=== PATIENT | female | born 1945 | race American Indian/Alaskan Native ===

== ENCOUNTER 2019-10-08 09:52 | Outpatient (CLI) | payer MEDICARE ==
--- NOTE | 2019-10-08 11:09 | Ultrasound Report ---
BILATERAL DIGITAL DIAGNOSTIC MAMMOGRAM WITH CAD -- 10/08/2019 LEFT LIMITED BREAST ULTRASOUND INDICATION: Evaluate findings noted in both breasts on recent screening mammogram. TECHNIQUE: Digital bilateral mammographic imaging was performed. Spot compression views were obtaine d. Limited ultrasound was performed. This examination was interpreted with the benefit of Computer- ded Detection (CAD) analysis. COMPARISON: 07/16/2019, 03/18/2014, 08/26/2010. FINDINGS: Additional views focused in the right superior breast were performed to evaluate the site of previous ly noted asymmetry which was seen in this region on the recent screening mammogram. The finding effac es and demonstrates a stable mammographic appearance compared to multiple prior mammograms. A large l ipoma within the right lateral breast appears unchanged. Additionally, spot views focused in the retr oareolar posterior left breast show persistence of an oval, possibly reniform, shaped isodense lesion located far posteriorly. This may represent a lymph node. A targeted ultrasound will be performed fo r confirmation. A targeted ultrasound focused left breast in the region of interest demonstrates a benign-appearing i ntramammary lymph node at the 3:30 position, 12 cm from the nipple. Cortical thickness measures up to 1.3 mm which is within normal limits. This would correspond with the mammographic finding seen in th is region. No evidence of malignancy. IMPRESSION: No evidence of malignancy. Benign-appearing left lateral posterior breast intramammary lymph node. Ro utine screening mammogram due in July 2020 is recommended. BI-RADS Category 2: Benign. Recommend routine screening mammography in one year A "normal" or negative report should not discourage follow up or biopsy of a clinically significant f inding. A written summary of these findings will be mailed to the patient. The patient will be entered into a mammography reporting system which will generate a reminder letter for the patient's next appointmen t at the appropriate interval. According to the [employer], yearly mammograms are recommended starting at age 40 and continuing as long as a woman is in good health. Breast MRI is recommended for women with an analilia roximately 20-25% or greater lifetime risk of breast cancer, including women with a strong family his tory of breast or ovarian cancer and women who have been treated for Hodgkin's disease. Signer Name: London Parr MD Signed: 10/08/2019 11:04 AM Workstation Name: [id number]
== END 2019-10-08 09:53 | disposition home or self-care (01) ==
LOC: SPVWC 09:52
PROVIDERS: ATTEND Surgery
DX: R92.8 Other abnormal and inconclusive findings on diagnostic imaging of breast (principal)
CPT/HCPCS: 77066